=== PATIENT | female | born 1955 | race African-American/Black ===

== ENCOUNTER 2023-04-21 23:26 | Inpatient (IN) | payer OTHER, MEDICARE ==
[2023-04-22 00:53] LABS: BASO % 0.5 % (0-2.0); EOS % 1.4 % (0-4.5); HEMATOCRIT 33.4 % (32.4-45.2); HEMOGLOBIN 10.8 GM/dL (10.7-15.3); LYMPH % 13.6 % (8-40); MCH 28.1 pg (25.7-33.7); MCHC 32.4 g/dl (32.0-36.0); MEAN CELL VOLUME 86.9 fl (80-96); MEAN PLT VOLUME 8.1 fl (7.5-11.1); NEUT % 77.5 % (42.8-82.8); PLATELET COUNT 382 10^3/uL (134-434); RBC 3.84 M/mm3 (3.60-5.2); RDW 14.7 % (11.6-15.6); WHITE BLOOD COUNT 12.9 K/mm3 (4.0-10.0)
[2023-04-22 01:22] LABS: CALCIUM 9.2 mg/dL (8.5-10.1)
[2023-04-22 01:23] LABS: ALBUMIN 3.5 g/dl (3.4-5.0); BLOOD UREA NITROGEN 34.6 mg/dL (7-18); MAGNESIUM 2.5 mg/dL (1.8-2.4)
[2023-04-22 01:26] LABS: CREATININE 2.4 mg/dL (0.55-1.3)
[2023-04-22 01:27] LABS: BILIRUBIN,TOTAL 0.3 mg/dL (0.2-1)
[2023-04-22 01:28] LABS: TOT PROT 7.4 g/dl (6.4-8.2)
[2023-04-22] MEDS ORDERED: hydrALAZINE HCL 20 MG/ML VIAL IVPUSH ONE (03:28)
[2023-04-22] MEDS ORDERED: hydrALAZINE HCL 50 MG TABLET (FP) PO ONE (04:09)
[2023-04-22 05:18] VITALS: BMI 35.5
[2023-04-22] MEDS ORDERED: SODIUM CHLORIDE 1,000 ML IV SCH (06:00)
[2023-04-22] MEDS: HEPARIN NA (PORCINE) 5,000 UNITS/ML 1ML VIAL SQ SCH ×2 (06:38→13:45)
[2023-04-22] MEDS: INSULIN SLIDING SCALE (NOVOLOG) 1 VIAL SQ SCH ×2 (06:41→11:08)
[2023-04-22] MEDS: hydrALAZINE HCL 50 MG TABLET (FP) PO SCH ×2 (06:48→13:45)
[2023-04-22] MEDS ORDERED: INSULIN (LEVEMIR) 100 UNITS/ML UNITS SQ SCH ×3 (07:00→22:00)
[2023-04-22 09:14] LABS: EPI CELLS 5 /uL (0-25.1); HYALINE CASTS 0 /uL (0-3.1); PH,URINE 6.5 (5.0-8.0); URINE APPEARANCE CLEAR; URINE BACTERIA 29 /uL (0-1359); URINE BILIRUBIN NEGATIVE (NEGATIVE); URINE COLOR YELLOW; URINE GLUCOSE (UA) NEGATIVE (NEGATIVE); URINE KETONE NEGATIVE (NEGATIVE); URINE LEUK ESTERASE NEGATIVE (NEGATIVE); URINE NITRITE NEGATIVE (NEGATIVE); URINE PROTEIN 2+ (NEGATIVE); URINE RBC 9 /uL (0-23.9); URINE UROBILINOGEN 0.2 mg/dL (0.2-1.0); URINE WBC 1 /uL (0-25.8)
[2023-04-22 09:43] LABS: HEMOGLOBIN 11.2 GM/dL (10.7-15.3); MCH 28.5 pg (25.7-33.7); MCHC 33.1 g/dl (32.0-36.0); MEAN CELL VOLUME 86.1 fl (80-96); MEAN PLT VOLUME 8.1 fl (7.5-11.1); PLATELET COUNT 389 10^3/uL (134-434); RBC 3.95 M/mm3 (3.60-5.2); RDW 14.4 % (11.6-15.6); WHITE BLOOD COUNT 11.2 K/mm3 (4.0-10.0)
[2023-04-22 10:00] LABS: POTASSIUM 4.3 mmol/L (3.5-5.1)
[2023-04-22] MEDS ORDERED: NEBIVOLOL 10 MG TABLET (FP) PO SCH (10:00)
[2023-04-22] MEDS ORDERED: LOSARTAN POTASSIUM 50 MG TABLET PO SCH (10:00)
[2023-04-22] MEDS ORDERED: hydrOXYzine HCL 10 MG/5 ML LIQUID BULK BOTTLE PO SCH (10:00)
[2023-04-22] MEDS ORDERED: amLODIPine BESYLATE 10 MG TABLET (FP) PO SCH (10:00)
[2023-04-22 10:03] LABS: CALCIUM 9.2 mg/dL (8.5-10.1)
[2023-04-22 10:04] LABS: BLOOD UREA NITROGEN 29.5 mg/dL (7-18)
[2023-04-22 10:05] LABS: ALBUMIN 3.6 g/dl (3.4-5.0)
[2023-04-22 10:07] LABS: CREATININE 1.8 mg/dL (0.55-1.3)
[2023-04-22 10:09] LABS: TOT PROT 7.6 g/dl (6.4-8.2)
[2023-04-22 10:12] LABS: BILIRUBIN,TOTAL 0.7 mg/dL (0.2-1)
[2023-04-22 14:21] VITALS: BP 151/74; PULSE 64; RESP 18; TEMP 98.6
== END 2023-04-22 14:40 | disposition home or self-care (01) | DRG 684 ==
LOC: JER 23:26 → JERBED 04-22 02:38 → J5S 04-22 04:25
PROVIDERS: ADMIT Internal Medicine; ATTEND Internal Medicine
DX: N17.9 Acute kidney failure, unspecified (principal); R74.01 Elevation of levels of liver transaminase levels; F41.9 Anxiety disorder, unspecified; Z79.84 Long term (current) use of oral hypoglycemic drugs; I12.9 Hypertensive chronic kidney disease with stage 1 through stage 4 chronic kidney disease, or unspecified chronic kidney disease; E11.22 Type 2 diabetes mellitus with diabetic chronic kidney disease; N18.9 Chronic kidney disease, unspecified; E86.0 Dehydration; R55 Syncope and collapse; R42 Dizziness and giddiness
CPT/HCPCS: 36415; 71045-TC-FY; 76775-TC; 80053; 81003; 82436; 82570; 82962; 83735; 83935; 84133; 84156; 84300; 84443; 84484; 84540; 85025; 85027; 86705; 86707; 86803; 87340; 87350; 87517; 93005; 93010; 99285-25